=== PATIENT | male | born 1965 | race Caucasian/White ===

== ENCOUNTER 2019-01-15 14:12 | Inpatient (IN) ==
[2019-01-15] MEDS ORDERED: ONDANSETRON 4 MG/2 ML VIAL IV STA (14:36)
[2019-01-15] MEDS ORDERED: LACTATED RINGERS 1,000 ML IV ONE (14:36)
[2019-01-15 15:02] LABS: ABG Base Excess -22.1 MMOL/L (-2.5-2.5); ABG HCO3 3.6 MMOL/L (20-26); ABG Oxygen Saturation 98.7 % (95-100); ABG TCO2 3.9 MMOL/L (23-27)
[2019-01-15 15:12] LABS: ABG PCO2 10.4 MM HG (35-48)
[2019-01-15 15:37] LABS: Apearance,Urine Slightly Hazy (Clear); Bilirubin,Urine Negative (Negative); Blood, Urine Moderate mg/dL (Negative); Glucose,Urine (UA) >=500 mg/dL (Negative); Hyaline Casts,Urine 7 /LPF (0-3); Ketones,Urine 80 mg/dL (Negative); Mucus,Urine Occasional /LPF (Occasional); Nitrite,Urine Negative (Negative); Protein,Urine 100 MG/DL; RBC,Urine 2 /HPF (0-4); Squamous Epithelial Cell,Urine Occasional /HPF (0-10); Urine Color Yellow (Yellow); Urine Specific Gravity 1.022 (1.001-1.035); Urine Urobilinogen < 2.0 EU/DL (0.2-1.0); WBC,Urine <1 /HPF (0-6)
[2019-01-15 15:40] LABS: INR 1.1; PT Patient Result 11.5 SECS; Salicylate 6.4 MG/DL (2.8-20)
[2019-01-15 15:41] LABS: Barbiturates Screen,Urine Negative (Negative); Benzodiazepines Screen,Urine Negative (Negative); Cannabinoid Screen,Urine Negative (Negative); Opiate Screen,Urine Negative (Negative); Phencyclidine Screen,Urine Negative (Negative)
[2019-01-15 15:42] LABS: Basophils % 0.1 % (0.0-0.8); Hematocrit 52.6 VOL% (42.0-52.0); Hemoglobin 16.1 GM/DL (14.0-18.0); Immature Granulocytes % 5.3 %; Immature Granulocytes Absolute 1.69 #; Lymphocytes # 1.9 10*3/uL (1.4-4.0); Lymphocytes % 5.8 % (21.2-54.2); Mean Corpuscular HGB Conc 30.6 GM/DL (32-36); Mean Corpuscular Volume 96.2 FL (87-102); Mean Platelet Volume 13.1 FL (9.6-12.0); Monocytes % 7.7 % (1.7-12.7); NRBC # 0.02 10*3/uL; Neutrophils % 81.1 % (38.7-73.9); Platelet Count 258 T/CUMM (130-400); Red Blood Count 5.47 MC/CUMM (3.8-5.5); Red Cell Distribution Width 14.4 % (9.3-17.3); White Blood Count 32.2 T/CUMM (4-12)
[2019-01-15 15:45] LABS: Acetaminophen < 2.0 UG/ML (10-30)
[2019-01-15] MEDS ORDERED: PANTOPRAZOLE 40 MG VIAL IV STA (15:47)
[2019-01-15] MEDS ORDERED: cefTRIAXone 1,000 MG in SODIUM CHLORIDE 0.9% 100 ML IV STA (15:56)
[2019-01-15] MEDS ORDERED: VANCOMYCIN INJ 1,500 MG in SODIUM CHLORIDE 0.9% 500 ML IV STA (15:56)
[2019-01-15] MEDS ORDERED: cefTRIAXone 1,000 MG in SYRINGE 1 EACH IV STA (16:00)
[2019-01-15 16:08] LABS: Alanine Aminotransferase 17 U/L (16-61); Alkaline Phosphatase 195 U/L (45-117); Aspartate Amino Transferase 49 U/L (0-37); Blood Urea Nitrogen 86 MG/DL (7-18); Calcium 9.1 MG/DL (8.5-10.1); Osmolality,Calculated 355.1 MOS/KG (273-304); Total Protein 8.2 G/DL (6.4-8.3)
[2019-01-15 16:10] LABS: Glucose 940 MG/DL (74-106)
[2019-01-15] MEDS: INSULIN REGULAR DRIP 100 ML IV PRN (16:21)
[2019-01-15] MEDS ORDERED: SODIUM CHLORIDE 0.9% 2,200 ML IV ONE ×2 (16:43→17:27)
[2019-01-15] MEDS ORDERED: SODIUM PHOSPHATE INJ 18.1 MMOL in SODIUM CHLORIDE 0.9% 250 ML IV PRN (16:47)
[2019-01-15] MEDS ORDERED: SODIUM CHLORIDE 0.9% 1,000 ML IV ONE (16:47)
[2019-01-15] MEDS ORDERED: MAGNESIUM SULF RIDER 4 GM in PREMIX 1 EACH IV PRN (16:47)
[2019-01-15] MEDS ORDERED: INSULIN REGULAR 100 UNIT/ML IV ONE (16:47)
[2019-01-15] MEDS ORDERED: SODIUM BICARB INJ 100 MEQ in STERILE WATER INJ 400 ML IV PRN (16:47)
[2019-01-15] MEDS ORDERED: MAGNESIUM SULF RIDER 2 GM in PREMIX 1 EACH IV PRN (16:47)
[2019-01-15] MEDS ORDERED: DEXTROSE 50% 25 GM/50 ML VIAL IV PRN ×2 (16:47)
[2019-01-15] MEDS ORDERED: INSULIN REGULAR DRIP 100 ML IV SCH (17:00)
[2019-01-15] MEDS ORDERED: PIPERACILLIN/TAZOBACTAM 2.25 MG in SODIUM CHLORIDE 0.9% 100 ML IV SCH (17:00)
[2019-01-15] MEDS ORDERED: VANCOMYCIN INJ 1,000 MG in SODIUM CHLORIDE 0.9% 250 ML IV SCH (17:00)
[2019-01-15] MEDS ORDERED: SODIUM CHLORIDE 0.9% 1,000 ML IV SCH ×2 (17:00→21:47)
[2019-01-15] MEDS ORDERED: POTASSIUM CHLORIDE INJ 10 MEQ in LACTATED RINGERS 1,000 ML IV SCH (17:00)
[2019-01-15 17:12] LABS: Band Neutrophils 16 % (0-10); Lymphocytes 7 % (20-55); Platelet Estimate Normal; Segmented Neutrophils 72 % (50-85)
[2019-01-15 17:13] LABS: Anisocytosis 1+
[2019-01-15 17:14] LABS: Poikilocytosis 1+
[2019-01-15 17:15] LABS: Burr Cells 1+; Microcytosis Slight
[2019-01-15 17:16] LABS: Total Cells Counted 100
[2019-01-15] MEDS: SODIUM CHLORIDE 0.9% 1,000 ML IV SCH ×2 (18:01→21:28)
[2019-01-15 18:16] LABS: Basophils % 0.1 % (0.0-0.8); Hemoglobin 14.1 GM/DL (14.0-18.0); Immature Granulocytes % 4.2 %; Lymphocytes # 1.6 10*3/uL (1.4-4.0); Lymphocytes % 5.7 % (21.2-54.2); Mean Corpuscular HGB Conc 31.3 GM/DL (32-36); Mean Corpuscular Volume 93.8 FL (87-102); Mean Platelet Volume 12.4 FL (9.6-12.0); Monocytes % 4.9 % (1.7-12.7); NRBC # 0.02 10*3/uL; Neutrophils % 85.1 % (38.7-73.9); Platelet Count 220 T/CUMM (130-400); Red Cell Distribution Width 14.2 % (9.3-17.3); White Blood Count 28.3 T/CUMM (4-12)
[2019-01-15 18:25] LABS: Calcium 8.2 MG/DL (8.5-10.1); Osmolality,Calculated 352.4 MOS/KG (273-304)
[2019-01-15 18:27] LABS: CKMB % 10.8 %
[2019-01-15 18:31] LABS: Troponin I 16.3 NG/ML (0.00-0.045)
[2019-01-15] MEDS: PIPERACILLIN/TAZOBACTAM 3,375 MG in SODIUM CHLORIDE 0.9% 100 ML IV SCH (18:39)
[2019-01-15 19:09] LABS: ABG Base Excess -16.6 MMOL/L (-2.5-2.5); ABG HCO3 12.2 MMOL/L (20-26); ABG Oxygen Saturation 99.4 % (95-100); ABG PH 7.255 (7.35-7.45); ABG TCO2 8.3 MMOL/L (23-27); Allen Test Positive
[2019-01-15 19:16] LABS: ABG PCO2 20.9 MM HG (35-48)
[2019-01-15 21:18] LABS: Band Neutrophils 18 % (0-10); Lymphocytes 5 % (20-55); Platelet Estimate Normal; Segmented Neutrophils 75 % (50-85)
[2019-01-15 21:19] LABS: Atypical Lymphocytes Few; Burr Cells 1+
[2019-01-15 21:21] LABS: Anisocytosis Slight; Poikilocytosis 1+; Spherocytes 1+
[2019-01-15 21:22] LABS: Total Cells Counted 100
[2019-01-15] MEDS: ASCORBIC ACID 500 MG TABLET PO SCH (21:29)
[2019-01-15 22:00] LABS: Calcium 8.6 MG/DL (8.5-10.1); Osmolality,Calculated 342.3 MOS/KG (273-304)
[2019-01-15] MEDS: POTASSIUM CHLORIDE RIDER 20 MEQ in PREMIX 1 EACH IV PRN (22:42)
[2019-01-15 23:34] LABS: Hematocrit 38.3 VOL% (42.0-52.0); Hemoglobin 12.5 GM/DL (14.0-18.0)
[2019-01-15 23:53] LABS: CKMB % 11.6 %
[2019-01-16] MEDS: PANTOPRAZOLE INJ 200 MG in SODIUM CHLORIDE 0.9% 250 ML IV SCH ×2 (00:50→20:04)
[2019-01-16] MEDS: POTASSIUM CHLORIDE RIDER 20 MEQ in PREMIX 1 EACH IV PRN ×3 (00:51→22:43)
[2019-01-16] MEDS: PIPERACILLIN/TAZOBACTAM 3,375 MG in SODIUM CHLORIDE 0.9% 100 ML IV SCH ×3 (01:42→17:03)
[2019-01-16] MEDS: INSULIN REGULAR DRIP 100 ML IV PRN ×2 (02:37→11:30)
[2019-01-16] MEDS: POTASSIUM CHLORIDE RIDER 10 MEQ in PREMIX 1 EACH IV PRN ×2 (02:39→10:04)
[2019-01-16] MEDS: ONDANSETRON 4 MG/2 ML VIAL IV PRN (02:45)
[2019-01-16 02:48] LABS: Basophils # 0.2 10*3/uL (0.0-0.2); Basophils % 0.7 % (0.0-0.8); Hemoglobin 12.3 GM/DL (14.0-18.0); Immature Granulocytes % 4.5 %; Lymphocytes # 0.9 10*3/uL (1.4-4.0); Lymphocytes % 3.2 % (21.2-54.2); Mean Corpuscular HGB Conc 32.4 GM/DL (32-36); Mean Corpuscular Volume 89.4 FL (87-102); Monocytes % 6.5 % (1.7-12.7); Neutrophils % 85.1 % (38.7-73.9); Platelet Count 189 T/CUMM (130-400); Red Blood Count 4.25 MC/CUMM (3.8-5.5); Red Cell Distribution Width 14.1 % (9.3-17.3)
[2019-01-16 03:29] LABS: Calcium 7.9 MG/DL (8.5-10.1); Osmolality,Calculated 337.7 MOS/KG (273-304)
[2019-01-16 03:33] LABS: CKMB % 12.3 %
[2019-01-16 03:35] LABS: Troponin I 27.9 NG/ML (0.00-0.045)
[2019-01-16] MEDS: DEXT 5% NACL 0.45% KCL 20 MEQ 20 MEQ/1,000 ML BAG IV SCH ×5 (03:43→20:04)
[2019-01-16 04:08] LABS: Band Neutrophils 6 % (0-10); Lymphocytes 5 % (20-55); Segmented Neutrophils 87 % (50-85); Total Cells Counted 100
[2019-01-16 04:09] LABS: Anisocytosis 1+; Platelet Estimate Adequate
[2019-01-16 07:03] LABS: Calcium 7.9 MG/DL (8.5-10.1); Osmolality,Calculated 332.7 MOS/KG (273-304)
[2019-01-16 07:47] LABS: Hematocrit 41.1 VOL% (42.0-52.0); Hemoglobin 13.8 GM/DL (14.0-18.0)
[2019-01-16 08:06] LABS: Thyroid Stimulating Hormone 0.261 uIU/ml (0.358-3.74)
[2019-01-16 08:08] LABS: Risk Ratio 7.91; VLDL CHOLESTEROL 27.6 MG/DL
[2019-01-16 08:39] LABS: Osmolality,Calculated 332.5 MOS/KG (273-304)
[2019-01-16] MEDS ORDERED: METOPROLOL TARTRATE 50 MG TABLET PO SCH (09:00)
[2019-01-16 09:26] LABS: ABG Base Excess -7.9 MMOL/L (-2.5-2.5); ABG HCO3 18.1 MMOL/L (20-26); ABG Oxygen Saturation 98.6 % (95-100); ABG TCO2 14.8 MMOL/L (23-27); Allen Test Positive
[2019-01-16] MEDS ORDERED: SODIUM CHLORIDE 0.45% 1,000 ML IV SCH (09:47)
[2019-01-16 10:41] LABS: Hematocrit 37.4 VOL% (42.0-52.0); Hemoglobin 12.2 GM/DL (14.0-18.0)
[2019-01-16 10:50] LABS: Troponin I 19.3 NG/ML (0.00-0.045)
[2019-01-16] MEDS: VANCOMYCIN INJ 1,000 MG in SODIUM CHLORIDE 0.9% 250 ML IV SCH ×2 (12:57→22:42)
[2019-01-16] MEDS: METOPROLOL TARTRATE 5 MG/5 ML VIAL IV SCH ×2 (13:03→18:08)
[2019-01-16] MEDS: ASCORBIC ACID 500 MG TABLET PO SCH ×2 (13:12→21:57)
[2019-01-16 13:17] LABS: Calcium 7.6 MG/DL (8.5-10.1); Osmolality,Calculated 325.9 MOS/KG (273-304)
[2019-01-16] MEDS: DEXTROSE 50% 25 GM/50 ML VIAL IV PRN (14:50)
[2019-01-16] MEDS ORDERED: DEXTROSE 50% 25 GM/50 ML SYRINGE IV ONE (14:52)
[2019-01-16] MEDS: ASPIRIN EC 325 MG TABLET PO SCH (16:42)
[2019-01-16 17:09] LABS: Hematocrit 33.3 VOL% (42.0-52.0); Hemoglobin 11.2 GM/DL (14.0-18.0)
[2019-01-16 18:11] LABS: Calcium 7.3 MG/DL (8.5-10.1); Osmolality,Calculated 326.9 MOS/KG (273-304)
[2019-01-16] MEDS: SODIUM CHLOR 0.45% KCL 20 MEQ 20 MEQ/1,000 ML BAG IV SCH (20:04)
[2019-01-16 20:53] LABS: Calcium 8.3 MG/DL (8.5-10.1); Osmolality,Calculated 323.6 MOS/KG (273-304)
[2019-01-16 21:43] LABS: Apearance,Urine CLOUDY (Clear); Bilirubin,Urine Negative (Negative); Blood, Urine Moderate mg/dL (Negative); Glucose,Urine (UA) 50 mg/dL (Negative); Granular Casts,Urine 15 /LPF (0-1); Ketones,Urine Negative (Negative); Mucus,Urine Occasional /LPF (Occasional); Nitrite,Urine Negative (Negative); Protein,Urine Negative; RBC,Urine 10 /HPF (0-4); Uric Acid Crystals,Urine Moderate /HPF (<1); Urine Color Yellow (Yellow); Urine Specific Gravity 1.015 (1.001-1.035); Urine Urobilinogen < 2.0 EU/DL (0.2-1.0); WBC,Urine 2 /HPF (0-6)
[2019-01-17] MEDS: INSULIN REGULAR DRIP 100 ML IV PRN ×2 (00:34→23:01)
[2019-01-17] MEDS: METOPROLOL TARTRATE 5 MG/5 ML VIAL IV SCH ×5 (00:35→23:39)
[2019-01-17 01:14] LABS: Hematocrit 34.7 VOL% (42.0-52.0); Hemoglobin 11.4 GM/DL (14.0-18.0)
[2019-01-17 01:25] LABS: Calcium 7.7 MG/DL (8.5-10.1); Osmolality,Calculated 322.9 MOS/KG (273-304)
[2019-01-17] MEDS: PANTOPRAZOLE INJ 200 MG in SODIUM CHLORIDE 0.9% 250 ML IV SCH ×2 (01:50→22:30)
[2019-01-17] MEDS: PIPERACILLIN/TAZOBACTAM 3,375 MG in SODIUM CHLORIDE 0.9% 100 ML IV SCH (01:54)
[2019-01-17] MEDS: DEXT 5% NACL 0.45% KCL 20 MEQ 20 MEQ/1,000 ML BAG IV SCH ×5 (02:30→20:28)
[2019-01-17 05:04] LABS: Calcium 8.1 MG/DL (8.5-10.1); Osmolality,Calculated 325.6 MOS/KG (273-304)
[2019-01-17] MEDS: POTASSIUM CHLORIDE RIDER 20 MEQ in PREMIX 1 EACH IV PRN (05:24)
[2019-01-17] MEDS ORDERED: LACTATED RINGERS 1,000 ML IV SCH (08:00)
[2019-01-17] MEDS ORDERED: DEXTROSE 5% 1,000 ML IV SCH (08:00)
[2019-01-17] MEDS ORDERED: niCARdipine INJ 25 MG in SODIUM CHLORIDE 0.9% 240 ML IV PRN (08:01)
[2019-01-17] MEDS ORDERED: cloNIDine 0.3 MG/24 HR PATCH TRANSDERM SCH (09:00)
[2019-01-17] MEDS: MEROPENEM 1,000 MG in SODIUM CHLORIDE 0.9% 100 ML IV SCH ×2 (12:36→18:06)
[2019-01-17] MEDS: RIFAMPIN INJ 600 MG in SODIUM CHLORIDE 0.9% 100 ML IV SCH (12:55)
[2019-01-17] MEDS: ONDANSETRON 4 MG/2 ML VIAL IV PRN (13:40)
[2019-01-17] MEDS: ASPIRIN EC 325 MG TABLET PO SCH (13:42)
[2019-01-17] MEDS: ASCORBIC ACID 500 MG TABLET PO SCH ×2 (13:42→20:28)
[2019-01-17] MEDS: VANCOMYCIN INJ 1,000 MG in SODIUM CHLORIDE 0.9% 250 ML IV SCH (13:44)
[2019-01-17] MEDS ORDERED: DEXTROSE 50% 25 GM/50 ML VIAL IV ONE (14:37)
[2019-01-17] MEDS: SODIUM CHLOR 0.45% KCL 20 MEQ 20 MEQ/1,000 ML BAG IV SCH (20:05)
[2019-01-18] MEDS: MEROPENEM 1,000 MG in SODIUM CHLORIDE 0.9% 100 ML IV SCH ×4 (00:42→23:22)
[2019-01-18] MEDS: VANCOMYCIN INJ 1,000 MG in SODIUM CHLORIDE 0.9% 250 ML IV SCH ×2 (01:22→12:16)
[2019-01-18] MEDS: DEXT 5% NACL 0.45% KCL 20 MEQ 20 MEQ/1,000 ML BAG IV SCH ×5 (03:44→18:41)
[2019-01-18 05:20] LABS: Basophils % 0.2 % (0.0-0.8); Eosinophils % 0.1 % (0.00-10.9); Hemoglobin 9.5 GM/DL (14.0-18.0); Immature Granulocytes % 1.6 %; Immature Granulocytes Absolute 0.21 #; Lymphocytes # 1.1 10*3/uL (1.4-4.0); Lymphocytes % 8.5 % (21.2-54.2); Mean Corpuscular HGB Conc 32.8 GM/DL (32-36); Mean Corpuscular Volume 90.1 FL (87-102); Mean Platelet Volume 12.3 FL (9.6-12.0); Monocytes % 4.7 % (1.7-12.7); Neutrophils % 84.9 % (38.7-73.9); Platelet Count 98 T/CUMM (130-400); Red Blood Count 3.22 MC/CUMM (3.8-5.5); Red Cell Distribution Width 14.6 % (9.3-17.3)
[2019-01-18] MEDS: METOPROLOL TARTRATE 5 MG/5 ML VIAL IV SCH ×4 (05:40→23:22)
[2019-01-18 05:57] LABS: Hypochromasia 1+; Lymphocytes 7 % (20-55); Platelet Estimate Decreased; Segmented Neutrophils 86 % (50-85); Total Cells Counted 100
[2019-01-18 05:58] LABS: Calcium 7.1 MG/DL (8.5-10.1); Osmolality,Calculated 309.7 MOS/KG (273-304)
[2019-01-18 06:25] LABS: Troponin I 3.41 NG/ML (0.00-0.045)
[2019-01-18] MEDS ORDERED: LACTATED RINGERS 1,000 ML IV SCH (08:00)
[2019-01-18] MEDS ORDERED: GLUCAGON 1 MG VIAL IM PRN (08:08)
[2019-01-18] MEDS ORDERED: DEXTROSE 50% 25 GM/50 ML VIAL IV PRN (08:08)
[2019-01-18] MEDS: COLCHICINE 0.6 MG CAPSULE PO SCH ×2 (08:42→20:30)
[2019-01-18] MEDS: ASPIRIN EC 325 MG TABLET PO SCH (08:42)
[2019-01-18] MEDS: ASCORBIC ACID 500 MG TABLET PO SCH ×2 (08:43→20:30)
[2019-01-18] MEDS: INSULIN GLARGINE 100 UNIT/ML SUBCUT SCH (08:44)
[2019-01-18] MEDS: RIFAMPIN INJ 600 MG in SODIUM CHLORIDE 0.9% 100 ML IV SCH (08:47)
[2019-01-18] MEDS: PANTOPRAZOLE INJ 200 MG in SODIUM CHLORIDE 0.9% 250 ML IV SCH (08:49)
[2019-01-18] MEDS ORDERED: PROPOFOL 200 MG/20 ML VIAL IV ONE (11:11)
[2019-01-18] MEDS ORDERED: ETOMIDATE 40 MG/20 ML VIAL IV ONE (11:11)
[2019-01-18] MEDS: INSULIN LISPRO 100 UNIT/ML SUBCUT SCH ×3 (12:17→20:37)
[2019-01-19] MEDS: VANCOMYCIN INJ 1,000 MG in SODIUM CHLORIDE 0.9% 250 ML IV SCH (00:24)
[2019-01-19] MEDS: INSULIN LISPRO 100 UNIT/ML SUBCUT SCH ×6 (01:02→21:45)
[2019-01-19 05:30] LABS: Basophils % 0.2 % (0.0-0.8); Eosinophils % 0.2 % (0.00-10.9); Hematocrit 28.3 VOL% (42.0-52.0); Hemoglobin 9.3 GM/DL (14.0-18.0); Immature Granulocytes Absolute 0.12 #; Lymphocytes # 1.1 10*3/uL (1.4-4.0); Lymphocytes % 8.9 % (21.2-54.2); Mean Corpuscular HGB Conc 32.9 GM/DL (32-36); Mean Corpuscular Volume 88.7 FL (87-102); Mean Platelet Volume 12.2 FL (9.6-12.0); Monocytes % 6.6 % (1.7-12.7); Neutrophils % 83.1 % (38.7-73.9); Platelet Count 102 T/CUMM (130-400); Red Blood Count 3.19 MC/CUMM (3.8-5.5); Red Cell Distribution Width 14.2 % (9.3-17.3); White Blood Count 12.1 T/CUMM (4-12)
[2019-01-19 06:00] LABS: Albumin 1.2 G/DL (3.4-5.0); Bilirubin,Direct 1.81 MG/DL (0.0-0.20); Bilirubin,Indirect 0.9 MG/DL (0.0-1.0); Bilirubin,Total 2.7 MG/DL (0.2-1.0); Total Protein 4.9 G/DL (6.4-8.3)
[2019-01-19] MEDS: METOPROLOL TARTRATE 5 MG/5 ML VIAL IV SCH (06:05)
[2019-01-19 06:07] LABS: Band Neutrophils 5 % (0-10); Lymphocytes 8 % (20-55); Nucleated Red Blood Cells 0 (0-5); Platelet Estimate Decreased; Segmented Neutrophils 83 % (50-85); Total Cells Counted 100
[2019-01-19 06:28] LABS: Calcium 6.9 MG/DL (8.5-10.1); Osmolality,Calculated 297.6 MOS/KG (273-304)
[2019-01-19] MEDS: POTASSIUM CHLORIDE RIDER 10 MEQ in PREMIX 1 EACH IV PRN (06:46)
[2019-01-19] MEDS ORDERED: NIFEdipine 10 MG CAPSULE PO PRN (07:50)
[2019-01-19] MEDS ORDERED: INSULIN LISPRO 100 UNIT/ML ONE (08:46)
[2019-01-19] MEDS: POTASSIUM CHLORIDE 20 MEQ TABLET PO SCH ×3 (08:51→17:10)
[2019-01-19] MEDS: COLCHICINE 0.6 MG CAPSULE PO SCH (08:51)
[2019-01-19] MEDS: ASCORBIC ACID 500 MG TABLET PO SCH ×2 (08:51→21:34)
[2019-01-19] MEDS: MEROPENEM 1,000 MG in SODIUM CHLORIDE 0.9% 100 ML IV SCH ×2 (08:58→17:09)
[2019-01-19] MEDS ORDERED: PANTOPRAZOLE 40 MG TABLET PO SCH (09:00)
[2019-01-19] MEDS ORDERED: PANTOPRAZOLE 40 MG VIAL IV SCH (09:00)
[2019-01-19] MEDS: DEXT 5% NACL 0.45% KCL 20 MEQ 20 MEQ/1,000 ML BAG IV SCH (09:00)
[2019-01-19] MEDS: INSULIN GLARGINE 100 UNIT/ML SUBCUT SCH (09:01)
[2019-01-19] MEDS: RIFAMPIN INJ 600 MG in SODIUM CHLORIDE 0.9% 100 ML IV SCH (10:08)
[2019-01-19] MEDS: LANSOPRAZOLE ODT 30 MG TABLET PER TUBE SCH (10:09)
[2019-01-19] MEDS: ASPIRIN CHEW 81 MG TABLET PO SCH (10:09)
[2019-01-19] MEDS: VANCOMYCIN INJ 1,500 MG in SODIUM CHLORIDE 0.9% 500 ML IV SCH (10:41)
[2019-01-19] MEDS: ASPIRIN EC 325 MG TABLET PO SCH (10:52)
[2019-01-19] MEDS ORDERED: METOPROLOL SUCCINATE XL 25 MG TABLET PO SCH (14:00)
[2019-01-19] MEDS: METOPROLOL TARTRATE 25 MG TABLET PO SCH (14:39)
[2019-01-19] MEDS ORDERED: CALCIUM GLUCONATE 2,000 MG in SODIUM CHLORIDE 0.9% 100 ML IV ONE (15:02)
[2019-01-19] MEDS: RIFAMPIN 300 MG CAPSULE PO SCH (21:34)
[2019-01-20] MEDS: MEROPENEM 1,000 MG in SODIUM CHLORIDE 0.9% 100 ML IV SCH ×4 (00:17→23:20)
[2019-01-20] MEDS: VANCOMYCIN INJ 1,500 MG in SODIUM CHLORIDE 0.9% 500 ML IV SCH ×2 (01:42→15:43)
[2019-01-20 05:51] LABS: Calcium 7.4 MG/DL (8.5-10.1); Osmolality,Calculated 288.8 MOS/KG (273-304)
[2019-01-20] MEDS: INSULIN LISPRO 100 UNIT/ML SUBCUT SCH ×5 (07:30→21:03)
[2019-01-20] MEDS: RIFAMPIN 300 MG CAPSULE PO SCH ×2 (10:39→20:54)
[2019-01-20] MEDS: INSULIN GLARGINE 100 UNIT/ML SUBCUT SCH (10:39)
[2019-01-20] MEDS: ASPIRIN CHEW 81 MG TABLET PO SCH (10:40)
[2019-01-20] MEDS: ASCORBIC ACID 500 MG TABLET PO SCH ×2 (10:40→20:54)
[2019-01-20] MEDS: METOPROLOL TARTRATE 25 MG TABLET PO SCH (10:40)
[2019-01-20] MEDS: COLCHICINE 0.6 MG CAPSULE PO SCH (10:40)
[2019-01-20] MEDS: LANSOPRAZOLE ODT 30 MG TABLET PER TUBE SCH (10:41)
[2019-01-20] MEDS ORDERED: TAMSULOSIN 0.4 MG CAPSULE PO SCH (21:00)
[2019-01-21] MEDS: VANCOMYCIN INJ 1,500 MG in SODIUM CHLORIDE 0.9% 500 ML IV SCH ×2 (02:34→17:13)
[2019-01-21 06:03] LABS: Calcium 7.3 MG/DL (8.5-10.1); Osmolality,Calculated 286.1 MOS/KG (273-304)
[2019-01-21] MEDS ORDERED: POTASSIUM CHLORIDE 20 MEQ TABLET PO ONE ×2 (09:00→12:35)
[2019-01-21] MEDS: MEROPENEM 1,000 MG in SODIUM CHLORIDE 0.9% 100 ML IV SCH (09:47)
[2019-01-21] MEDS: METOPROLOL TARTRATE 25 MG TABLET PO SCH (09:48)
[2019-01-21] MEDS: ASCORBIC ACID 500 MG TABLET PO SCH ×2 (09:48→21:41)
[2019-01-21] MEDS: COLCHICINE 0.6 MG CAPSULE PO SCH (09:48)
[2019-01-21] MEDS: ASPIRIN CHEW 81 MG TABLET PO SCH (09:49)
[2019-01-21] MEDS: RIFAMPIN 300 MG CAPSULE PO SCH ×2 (09:49→21:41)
[2019-01-21] MEDS: LANSOPRAZOLE ODT 30 MG TABLET PER TUBE SCH (09:49)
[2019-01-21] MEDS: INSULIN LISPRO 100 UNIT/ML SUBCUT SCH ×4 (10:40→21:41)
[2019-01-21] MEDS: INSULIN GLARGINE 100 UNIT/ML SUBCUT SCH (10:41)
[2019-01-22] MEDS: VANCOMYCIN INJ 1,500 MG in SODIUM CHLORIDE 0.9% 500 ML IV SCH ×2 (03:21→15:39)
[2019-01-22 06:26] LABS: Calcium 7.5 MG/DL (8.5-10.1); Osmolality,Calculated 279.1 MOS/KG (273-304)
[2019-01-22] MEDS: DEXTROSE 50% 25 GM/50 ML VIAL IV PRN (06:50)
[2019-01-22] MEDS: INSULIN LISPRO 100 UNIT/ML SUBCUT SCH ×4 (07:32→21:09)
[2019-01-22] MEDS: RIFAMPIN 300 MG CAPSULE PO SCH (08:20)
[2019-01-22] MEDS: COLCHICINE 0.6 MG CAPSULE PO SCH (08:20)
[2019-01-22] MEDS: ASCORBIC ACID 500 MG TABLET PO SCH ×2 (08:20→21:08)
[2019-01-22] MEDS: METOPROLOL TARTRATE 25 MG TABLET PO SCH (08:20)
[2019-01-22] MEDS: ASPIRIN CHEW 81 MG TABLET PO SCH (08:20)
[2019-01-22] MEDS: LANSOPRAZOLE ODT 30 MG TABLET PER TUBE SCH (08:20)
[2019-01-22] MEDS: POTASSIUM CHLORIDE RIDER 10 MEQ in PREMIX 1 EACH IV PRN ×3 (08:47→13:43)
[2019-01-22] MEDS: INSULIN GLARGINE 100 UNIT/ML SUBCUT SCH (09:47)
[2019-01-23] MEDS: VANCOMYCIN INJ 1,500 MG in SODIUM CHLORIDE 0.9% 500 ML IV SCH ×2 (02:50→15:14)
[2019-01-23] MEDS: INSULIN LISPRO 100 UNIT/ML SUBCUT SCH ×4 (07:26→21:39)
[2019-01-23] MEDS: ASCORBIC ACID 500 MG TABLET PO SCH ×2 (08:21→21:39)
[2019-01-23] MEDS: RIFAMPIN 300 MG CAPSULE PO SCH (08:21)
[2019-01-23] MEDS: ASPIRIN CHEW 81 MG TABLET PO SCH (08:22)
[2019-01-23] MEDS: METOPROLOL TARTRATE 25 MG TABLET PO SCH (08:22)
[2019-01-23] MEDS: COLCHICINE 0.6 MG CAPSULE PO SCH (08:22)
[2019-01-23] MEDS: INSULIN GLARGINE 100 UNIT/ML SUBCUT SCH (08:22)
[2019-01-23] MEDS: LANSOPRAZOLE ODT 30 MG TABLET PER TUBE SCH (08:22)
[2019-01-23] MEDS ORDERED: LIDOCAINE 1% 20 ML VIAL MISC INJ ONE (17:45)
[2019-01-23 19:42] LABS: Cholesterol Crystals None Seen /LPF
[2019-01-23 20:37] LABS: Lymphocytes,Synovial Fluid 3 %; Neutrophils,Synovial Fluid 91 %
[2019-01-24] MEDS: LACTATED RINGERS 1,000 ML IV SCH ×2 (02:29→13:20)
[2019-01-24] MEDS: VANCOMYCIN INJ 1,500 MG in SODIUM CHLORIDE 0.9% 500 ML IV SCH ×2 (02:29→18:00)
[2019-01-24 05:08] LABS: Basophils % 0.4 % (0.0-0.8); Eosinophils # 0.2 10*3/uL (0.0-0.87); Eosinophils % 2.1 % (0.00-10.9); Hematocrit 26.2 VOL% (42.0-52.0); Hemoglobin 8.3 GM/DL (14.0-18.0); Immature Granulocytes % 0.8 %; Immature Granulocytes Absolute 0.09 #; Lymphocytes # 1.3 10*3/uL (1.4-4.0); Lymphocytes % 11.4 % (21.2-54.2); Mean Corpuscular HGB Conc 31.7 GM/DL (32-36); Mean Corpuscular Volume 91.6 FL (87-102); Mean Platelet Volume 11.1 FL (9.6-12.0); Monocytes % 9.4 % (1.7-12.7); Neutrophils % 75.9 % (38.7-73.9); Platelet Count 349 T/CUMM (130-400); Red Blood Count 2.86 MC/CUMM (3.8-5.5); Red Cell Distribution Width 12.6 % (9.3-17.3); White Blood Count 11.4 T/CUMM (4-12)
[2019-01-24 05:33] LABS: Calcium 7.4 MG/DL (8.5-10.1); Osmolality,Calculated 276.4 MOS/KG (273-304)
[2019-01-24] MEDS: INSULIN LISPRO 100 UNIT/ML SUBCUT SCH ×4 (07:30→20:46)
[2019-01-24] MEDS: INSULIN NPH 100 UNIT/ML SUBCUT SCH ×2 (07:30→16:30)
[2019-01-24 07:54] LABS: Sedimentation Rate-Westergren 125 MM/HR (0-20)
[2019-01-24] MEDS: ASCORBIC ACID 500 MG TABLET PO SCH ×2 (09:00→20:46)
[2019-01-24] MEDS: METOPROLOL TARTRATE 25 MG TABLET PO SCH ×2 (09:00→20:45)
[2019-01-24] MEDS ORDERED: BUPIVACAINE 0.5% 50 ML VIAL ONE (13:41)
[2019-01-24] MEDS ORDERED: BACITRACIN OINT 0.9 GM PACK TOP ONE (14:10)
[2019-01-24] MEDS ORDERED: LACTATED RINGERS 1,000 ML IV SCH ×2 (14:30→17:30)
[2019-01-24] MEDS ORDERED: diphenhydrAMINE CAP 25 MG CAPSULE PO PRN (15:51)
[2019-01-24] MEDS ORDERED: KETOROLAC 30 MG/1 ML VIAL IV PRN (15:51)
[2019-01-24] MEDS ORDERED: MORPHINE 4 MG/1 ML VIAL IV PRN (15:51)
[2019-01-24] MEDS ORDERED: MIDAZOLAM 2 MG/2 ML VIAL ONE (16:48)
[2019-01-24] MEDS ORDERED: SEVOFLURANE 1 UNIT/15 MINUTE INH ONE (16:48)
[2019-01-24] MEDS ORDERED: PROPOFOL 200 MG/20 ML VIAL IV ONE (16:48)
[2019-01-24] MEDS ORDERED: NEOSTIGMINE 10 MG/10 ML VIAL ONE (16:49)
[2019-01-24] MEDS ORDERED: PHENYLEPHRINE 1 MG/10 ML SYRINGE IV ONE (16:49)
[2019-01-24] MEDS ORDERED: ONDANSETRON 4 MG/2 ML VIAL ONE ×2 (16:49→17:14)
[2019-01-24] MEDS ORDERED: GLYCOPYRROLATE 0.4 MG/2 ML VIAL ONE (16:49)
[2019-01-24] MEDS ORDERED: ROCURONIUM 100 MG/10 ML VIAL IV ONE (16:49)
[2019-01-24] MEDS ORDERED: fentaNYL 100 MCG/2 ML VIAL ONE (16:49)
[2019-01-24] MEDS ORDERED: ONDANSETRON 4 MG/2 ML VIAL IV PRN (17:13)
[2019-01-24] MEDS ORDERED: HYDROmorphone 2 MG/1 ML VIAL ONE (17:14)
[2019-01-24] MEDS: HYDROmorphone 2 MG/1 ML VIAL IV PRN ×2 (17:15→17:23)
[2019-01-24] MEDS: ASPIRIN CHEW 81 MG TABLET PO SCH (17:43)
[2019-01-24] MEDS: LANSOPRAZOLE ODT 30 MG TABLET PER TUBE SCH (17:43)
[2019-01-24] MEDS: RIFAMPIN 300 MG CAPSULE PO SCH (17:44)
[2019-01-24] MEDS: COLCHICINE 0.6 MG CAPSULE PO SCH (17:45)
[2019-01-25] MEDS: VANCOMYCIN INJ 1,500 MG in SODIUM CHLORIDE 0.9% 500 ML IV SCH ×2 (03:12→16:47)
[2019-01-25] MEDS: ASCORBIC ACID 500 MG TABLET PO SCH ×2 (10:04→21:28)
[2019-01-25] MEDS: LANSOPRAZOLE ODT 30 MG TABLET PER TUBE SCH (10:04)
[2019-01-25] MEDS: METOPROLOL TARTRATE 25 MG TABLET PO SCH ×2 (10:04→21:28)
[2019-01-25] MEDS: ASPIRIN CHEW 81 MG TABLET PO SCH (10:04)
[2019-01-25] MEDS: INSULIN LISPRO 100 UNIT/ML SUBCUT SCH ×4 (10:14→21:28)
[2019-01-25] MEDS: INSULIN NPH 100 UNIT/ML SUBCUT SCH ×2 (10:15→16:47)
[2019-01-25] MEDS: RIFAMPIN 300 MG CAPSULE PO SCH (11:58)
[2019-01-26] MEDS: POTASSIUM CHLORIDE INJ 20 MEQ in LACTATED RINGERS 1,000 ML IV SCH ×2 (00:28→10:30)
[2019-01-26] MEDS: VANCOMYCIN INJ 1,500 MG in SODIUM CHLORIDE 0.9% 500 ML IV SCH ×2 (03:33→14:39)
[2019-01-26] MEDS ORDERED: FAMOTIDINE 20 MG TABLET PO ONE (06:00)
[2019-01-26 06:22] LABS: Basophils # 0.1 10*3/uL (0.0-0.2); Basophils % 0.6 % (0.0-0.8); Eosinophils # 0.2 10*3/uL (0.0-0.87); Eosinophils % 2.6 % (0.00-10.9); Hematocrit 22.4 VOL% (42.0-52.0); Hemoglobin 7.2 GM/DL (14.0-18.0); Immature Granulocytes % 0.7 %; Immature Granulocytes Absolute 0.06 #; Lymphocytes # 1.2 10*3/uL (1.4-4.0); Lymphocytes % 13.9 % (21.2-54.2); Mean Corpuscular HGB Conc 32.1 GM/DL (32-36); Mean Corpuscular Volume 90.7 FL (87-102); Mean Platelet Volume 11.4 FL (9.6-12.0); Monocytes % 9.2 % (1.7-12.7); Platelet Count 342 T/CUMM (130-400); Red Blood Count 2.47 MC/CUMM (3.8-5.5); Red Cell Distribution Width 12.6 % (9.3-17.3); White Blood Count 8.8 T/CUMM (4-12)
[2019-01-26 06:33] LABS: Osmolality,Calculated 278.3 MOS/KG (273-304)
[2019-01-26] MEDS: INSULIN LISPRO 100 UNIT/ML SUBCUT SCH ×4 (08:29→21:24)
[2019-01-26] MEDS: INSULIN NPH 100 UNIT/ML SUBCUT SCH ×2 (08:30→17:05)
[2019-01-26] MEDS ORDERED: SODIUM CHLORIDE 0.9% 1,000 ML IV PRN (08:50)
[2019-01-26] MEDS: ASPIRIN CHEW 81 MG TABLET PO SCH (08:57)
[2019-01-26] MEDS: LANSOPRAZOLE ODT 30 MG TABLET PER TUBE SCH (08:57)
[2019-01-26] MEDS: ASCORBIC ACID 500 MG TABLET PO SCH ×2 (08:58→21:24)
[2019-01-26] MEDS: METOPROLOL TARTRATE 25 MG TABLET PO SCH ×2 (09:31→21:24)
[2019-01-26] MEDS: POTASSIUM CHLORIDE RIDER 10 MEQ in PREMIX 1 EACH IV PRN ×4 (09:31→18:45)
[2019-01-26] MEDS ORDERED: BUPIVACAINE 0.5% 50 ML VIAL ONE (10:27)
[2019-01-26] MEDS ORDERED: PROPOFOL 200 MG/20 ML VIAL IV ONE (11:50)
[2019-01-26] MEDS ORDERED: MIDAZOLAM 2 MG/2 ML VIAL ONE (11:51)
[2019-01-26] MEDS ORDERED: SEVOFLURANE 1 UNIT/15 MINUTE INH ONE (11:51)
[2019-01-26] MEDS ORDERED: SODIUM CHLORIDE 0.9% 1,000 ML IV ONE (11:51)
[2019-01-26] MEDS ORDERED: fentaNYL 100 MCG/2 ML VIAL ONE (11:51)
[2019-01-26] MEDS ORDERED: SUCCINYLCHOLINE 200 MG/10 ML VIAL ONE (11:51)
[2019-01-26] MEDS ORDERED: ONDANSETRON 4 MG/2 ML VIAL ONE (11:51)
[2019-01-26] MEDS ORDERED: PHENYLEPHRINE 1 MG/10 ML SYRINGE IV ONE (11:51)
[2019-01-26 15:48] LABS: Hematocrit 26.5 VOL% (42.0-52.0); Hemoglobin 8.6 GM/DL (14.0-18.0)
[2019-01-27] MEDS: VANCOMYCIN INJ 1,500 MG in SODIUM CHLORIDE 0.9% 500 ML IV SCH ×2 (02:34→14:55)
[2019-01-27] MEDS: INSULIN NPH 100 UNIT/ML SUBCUT SCH ×2 (08:52→16:50)
[2019-01-27] MEDS: INSULIN LISPRO 100 UNIT/ML SUBCUT SCH ×4 (08:52→20:17)
[2019-01-27] MEDS: POTASSIUM CHLORIDE RIDER 10 MEQ in PREMIX 1 EACH IV PRN (08:53)
[2019-01-27] MEDS: METOPROLOL TARTRATE 25 MG TABLET PO SCH ×2 (08:53→20:16)
[2019-01-27] MEDS: LANSOPRAZOLE ODT 30 MG TABLET PER TUBE SCH (08:53)
[2019-01-27] MEDS: ASCORBIC ACID 500 MG TABLET PO SCH ×2 (08:53→20:16)
[2019-01-27] MEDS: ASPIRIN CHEW 81 MG TABLET PO SCH (08:53)
[2019-01-27 09:25] LABS: Hemoglobin 9.2 GM/DL (14.0-18.0)
[2019-01-27] MEDS: MAGNESIUM HYDROXIDE SUSP 30 ML UDCUP PO PRN (14:54)
[2019-01-28] MEDS: VANCOMYCIN INJ 1,500 MG in SODIUM CHLORIDE 0.9% 500 ML IV SCH ×2 (03:31→16:07)
[2019-01-28] MEDS: INSULIN NPH 100 UNIT/ML SUBCUT SCH ×2 (08:24→16:41)
[2019-01-28] MEDS: METOPROLOL TARTRATE 25 MG TABLET PO SCH ×2 (08:25→20:42)
[2019-01-28] MEDS: INSULIN LISPRO 100 UNIT/ML SUBCUT SCH ×4 (08:25→20:53)
[2019-01-28] MEDS: ASPIRIN CHEW 81 MG TABLET PO SCH (08:25)
[2019-01-28] MEDS: ASCORBIC ACID 500 MG TABLET PO SCH ×2 (08:25→20:42)
[2019-01-28] MEDS: LANSOPRAZOLE ODT 30 MG TABLET PER TUBE SCH (08:25)
[2019-01-28] MEDS: MAGNESIUM HYDROXIDE SUSP 30 ML UDCUP PO PRN ×2 (08:57→14:12)
[2019-01-28] MEDS: LIDOCAINE 2% VISCOUS 100 ML BOTTLE SWISH/SPIT SCH ×3 (14:12→20:43)
[2019-01-28] MEDS: FLUCONAZOLE 200 MG TABLET PO SCH (14:12)
[2019-01-28] MEDS: VANCOMYCIN INJ 1,250 MG in SODIUM CHLORIDE 0.9% 250 ML IV SCH (20:43)
[2019-01-29] MEDS: INSULIN LISPRO 100 UNIT/ML SUBCUT SCH ×4 (07:38→21:41)
[2019-01-29] MEDS: INSULIN NPH 100 UNIT/ML SUBCUT SCH ×2 (07:38→16:19)
[2019-01-29] MEDS: LIDOCAINE 2% VISCOUS 100 ML BOTTLE SWISH/SPIT SCH ×4 (08:32→21:40)
[2019-01-29] MEDS: FLUCONAZOLE 200 MG TABLET PO SCH (08:32)
[2019-01-29] MEDS: VANCOMYCIN INJ 1,250 MG in SODIUM CHLORIDE 0.9% 250 ML IV SCH ×2 (08:33→21:50)
[2019-01-29] MEDS: ASCORBIC ACID 500 MG TABLET PO SCH ×2 (08:33→21:41)
[2019-01-29] MEDS: LANSOPRAZOLE ODT 30 MG TABLET PER TUBE SCH (08:33)
[2019-01-29] MEDS: METOPROLOL TARTRATE 25 MG TABLET PO SCH ×2 (08:33→21:41)
[2019-01-29] MEDS: ASPIRIN CHEW 81 MG TABLET PO SCH (08:33)
[2019-01-30 05:57] LABS: Calcium 7.7 MG/DL (8.5-10.1); Osmolality,Calculated 276.3 MOS/KG (273-304)
[2019-01-30] MEDS: METOPROLOL TARTRATE 25 MG TABLET PO SCH ×2 (08:47→21:24)
[2019-01-30] MEDS: ASCORBIC ACID 500 MG TABLET PO SCH ×2 (08:47→21:23)
[2019-01-30] MEDS: INSULIN NPH 100 UNIT/ML SUBCUT SCH (08:47)
[2019-01-30] MEDS: FLUCONAZOLE 200 MG TABLET PO SCH (08:47)
[2019-01-30] MEDS: INSULIN LISPRO 100 UNIT/ML SUBCUT SCH ×4 (08:47→21:56)
[2019-01-30] MEDS: ASPIRIN CHEW 81 MG TABLET PO SCH (08:47)
[2019-01-30] MEDS: LIDOCAINE 2% VISCOUS 100 ML BOTTLE SWISH/SPIT SCH ×4 (08:47→21:24)
[2019-01-30] MEDS: LANSOPRAZOLE ODT 30 MG TABLET PER TUBE SCH (08:48)
[2019-01-30] MEDS: VANCOMYCIN INJ 1,250 MG in SODIUM CHLORIDE 0.9% 250 ML IV SCH ×2 (09:00→21:22)
[2019-01-30] MEDS ORDERED: INSULIN NPH 100 UNIT/ML SUBCUT SCH (12:04)
[2019-01-31] MEDS: ASCORBIC ACID 500 MG TABLET PO SCH ×2 (09:30→22:13)
[2019-01-31] MEDS: VANCOMYCIN INJ 1,250 MG in SODIUM CHLORIDE 0.9% 250 ML IV SCH (09:30)
[2019-01-31] MEDS: ASPIRIN CHEW 81 MG TABLET PO SCH (09:30)
[2019-01-31] MEDS: METOPROLOL TARTRATE 25 MG TABLET PO SCH ×2 (09:31→22:13)
[2019-01-31] MEDS: INSULIN LISPRO 100 UNIT/ML SUBCUT SCH ×4 (09:31→22:10)
[2019-01-31] MEDS: LIDOCAINE 2% VISCOUS 100 ML BOTTLE SWISH/SPIT SCH ×3 (09:31→16:32)
[2019-01-31] MEDS: FLUCONAZOLE 200 MG TABLET PO SCH (09:31)
[2019-01-31] MEDS: LANSOPRAZOLE ODT 30 MG TABLET PER TUBE SCH (10:45)
[2019-01-31] MEDS: INSULIN NPH 100 UNIT/ML SUBCUT SCH ×2 (12:47→16:32)
[2019-02-01] MEDS: VANCOMYCIN INJ 1,250 MG in SODIUM CHLORIDE 0.9% 250 ML IV SCH ×3 (03:40→20:58)
[2019-02-01 05:20] LABS: Basophils # 0.1 10*3/uL (0.0-0.2); Basophils % 0.7 % (0.0-0.8); Eosinophils # 0.3 10*3/uL (0.0-0.87); Eosinophils % 4.7 % (0.00-10.9); Hematocrit 26.6 VOL% (42.0-52.0); Hemoglobin 8.3 GM/DL (14.0-18.0); Immature Granulocytes % 0.9 %; Immature Granulocytes Absolute 0.06 #; Lymphocytes # 1.7 10*3/uL (1.4-4.0); Mean Corpuscular HGB Conc 31.2 GM/DL (32-36); Mean Corpuscular Volume 86.4 FL (87-102); Monocytes % 12.7 % (1.7-12.7); Platelet Count 263 T/CUMM (130-400); Red Blood Count 3.08 MC/CUMM (3.8-5.5); Red Cell Distribution Width 14.3 % (9.3-17.3)
[2019-02-01 05:31] LABS: Calcium 7.6 MG/DL (8.5-10.1); Osmolality,Calculated 277.4 MOS/KG (273-304)
[2019-02-01] MEDS: LIDOCAINE 2% VISCOUS 100 ML BOTTLE SWISH/SPIT SCH ×5 (06:13→21:14)
[2019-02-01] MEDS: LANSOPRAZOLE ODT 30 MG TABLET PER TUBE SCH (09:34)
[2019-02-01] MEDS: INSULIN NPH 100 UNIT/ML SUBCUT SCH ×2 (09:34→17:24)
[2019-02-01] MEDS: ASCORBIC ACID 500 MG TABLET PO SCH ×2 (09:34→20:57)
[2019-02-01] MEDS: FLUCONAZOLE 200 MG TABLET PO SCH (09:34)
[2019-02-01] MEDS: METOPROLOL TARTRATE 25 MG TABLET PO SCH ×2 (09:34→20:57)
[2019-02-01] MEDS: ASPIRIN CHEW 81 MG TABLET PO SCH (09:34)
[2019-02-01] MEDS: INSULIN LISPRO 100 UNIT/ML SUBCUT SCH ×4 (09:35→21:13)
[2019-02-01] MEDS: ZINC OXIDE PASTE 113 GM TUBE TOP SCH ×2 (17:31→21:14)
[2019-02-02] MEDS: INSULIN NPH 100 UNIT/ML SUBCUT SCH ×2 (08:51→16:11)
[2019-02-02] MEDS: INSULIN LISPRO 100 UNIT/ML SUBCUT SCH ×4 (08:51→20:37)
[2019-02-02] MEDS: LANSOPRAZOLE ODT 30 MG TABLET PER TUBE SCH (08:52)
[2019-02-02] MEDS: LIDOCAINE 2% VISCOUS 100 ML BOTTLE SWISH/SPIT SCH (08:52)
[2019-02-02] MEDS: METOPROLOL TARTRATE 25 MG TABLET PO SCH ×2 (08:52→20:22)
[2019-02-02] MEDS: FLUCONAZOLE 200 MG TABLET PO SCH (08:52)
[2019-02-02] MEDS: ASCORBIC ACID 500 MG TABLET PO SCH ×2 (08:52→20:22)
[2019-02-02] MEDS: ASPIRIN CHEW 81 MG TABLET PO SCH (08:52)
[2019-02-02] MEDS: ZINC OXIDE PASTE 113 GM TUBE TOP SCH ×2 (08:53→20:23)
[2019-02-02] MEDS: VANCOMYCIN INJ 1,250 MG in SODIUM CHLORIDE 0.9% 250 ML IV SCH ×2 (08:54→20:26)
[2019-02-02] MEDS: COENZYME Q10 100 MG CAPSULE PO SCH ×2 (10:08→10:14)
[2019-02-02] MEDS: ATORVASTATIN 20 MG TABLET PO SCH (20:22)
[2019-02-03] MEDS: INSULIN LISPRO 100 UNIT/ML SUBCUT SCH ×4 (07:32→21:40)
[2019-02-03] MEDS: INSULIN NPH 100 UNIT/ML SUBCUT SCH ×2 (08:39→16:53)
[2019-02-03] MEDS: ASPIRIN CHEW 81 MG TABLET PO SCH (08:39)
[2019-02-03] MEDS: LANSOPRAZOLE ODT 30 MG TABLET PER TUBE SCH (08:39)
[2019-02-03] MEDS: METOPROLOL TARTRATE 25 MG TABLET PO SCH ×2 (08:39→20:28)
[2019-02-03] MEDS: ZINC OXIDE PASTE 113 GM TUBE TOP SCH ×2 (08:40→20:28)
[2019-02-03] MEDS: COENZYME Q10 100 MG CAPSULE PO SCH (08:40)
[2019-02-03] MEDS: VANCOMYCIN INJ 1,250 MG in SODIUM CHLORIDE 0.9% 250 ML IV SCH ×2 (08:40→20:25)
[2019-02-03] MEDS: ASCORBIC ACID 500 MG TABLET PO SCH ×2 (08:40→20:28)
[2019-02-03] MEDS: ATORVASTATIN 20 MG TABLET PO SCH (20:27)
[2019-02-04 05:57] LABS: Calcium 7.6 MG/DL (8.5-10.1); Osmolality,Calculated 277.4 MOS/KG (273-304)
[2019-02-04] MEDS: INSULIN LISPRO 100 UNIT/ML SUBCUT SCH ×3 (08:38→16:54)
[2019-02-04] MEDS: INSULIN NPH 100 UNIT/ML SUBCUT SCH ×2 (08:38→16:54)
[2019-02-04] MEDS: ASPIRIN CHEW 81 MG TABLET PO SCH (08:39)
[2019-02-04] MEDS: LANSOPRAZOLE ODT 30 MG TABLET PER TUBE SCH (08:39)
[2019-02-04] MEDS: METOPROLOL TARTRATE 25 MG TABLET PO SCH ×2 (08:39→21:13)
[2019-02-04] MEDS: ASCORBIC ACID 500 MG TABLET PO SCH ×2 (08:39→21:13)
[2019-02-04] MEDS: VANCOMYCIN INJ 1,250 MG in SODIUM CHLORIDE 0.9% 250 ML IV SCH ×2 (08:40→21:18)
[2019-02-04] MEDS: ZINC OXIDE PASTE 113 GM TUBE TOP SCH ×2 (08:40→21:14)
[2019-02-04] MEDS: ONDANSETRON 4 MG/2 ML VIAL IV PRN (08:41)
[2019-02-04] MEDS: ATORVASTATIN 20 MG TABLET PO SCH (21:13)
[2019-02-05] MEDS: INSULIN LISPRO 100 UNIT/ML SUBCUT SCH ×5 (00:35→21:58)
[2019-02-05 05:52] LABS: Calcium 7.5 MG/DL (8.5-10.1); Osmolality,Calculated 279.5 MOS/KG (273-304)
[2019-02-05] MEDS: INSULIN NPH 100 UNIT/ML SUBCUT SCH ×2 (09:03→17:12)
[2019-02-05] MEDS: ASPIRIN CHEW 81 MG TABLET PO SCH (09:03)
[2019-02-05] MEDS: METOPROLOL TARTRATE 25 MG TABLET PO SCH ×2 (09:03→21:57)
[2019-02-05] MEDS: LANSOPRAZOLE ODT 30 MG TABLET PER TUBE SCH (09:03)
[2019-02-05] MEDS: ASCORBIC ACID 500 MG TABLET PO SCH ×2 (09:03→21:57)
[2019-02-05] MEDS: ZINC OXIDE PASTE 113 GM TUBE TOP SCH ×2 (09:58→22:19)
[2019-02-05] MEDS: VANCOMYCIN INJ 1,250 MG in SODIUM CHLORIDE 0.9% 250 ML IV SCH ×2 (10:02→21:58)
[2019-02-05] MEDS: ATORVASTATIN 20 MG TABLET PO SCH (21:57)
[2019-02-06] MEDS: INSULIN LISPRO 100 UNIT/ML SUBCUT SCH ×4 (06:59→22:19)
[2019-02-06] MEDS: INSULIN NPH 100 UNIT/ML SUBCUT SCH ×2 (09:28→16:03)
[2019-02-06] MEDS: METOPROLOL TARTRATE 25 MG TABLET PO SCH ×2 (09:29→22:19)
[2019-02-06] MEDS: ASCORBIC ACID 500 MG TABLET PO SCH ×2 (09:29→22:18)
[2019-02-06] MEDS: ASPIRIN CHEW 81 MG TABLET PO SCH (09:29)
[2019-02-06] MEDS: LANSOPRAZOLE ODT 30 MG TABLET PER TUBE SCH (09:29)
[2019-02-06] MEDS: VANCOMYCIN INJ 1,250 MG in SODIUM CHLORIDE 0.9% 250 ML IV SCH ×2 (09:53→22:19)
[2019-02-06] MEDS: ZINC OXIDE PASTE 113 GM TUBE TOP SCH ×2 (09:53→22:19)
[2019-02-06] MEDS ORDERED: FUROSEMIDE 40 MG/4 ML VIAL IV ONE (10:30)
[2019-02-06] MEDS: ATORVASTATIN 20 MG TABLET PO SCH (22:19)
[2019-02-07] MEDS: INSULIN LISPRO 100 UNIT/ML SUBCUT SCH ×4 (08:04→20:58)
[2019-02-07] MEDS: ASCORBIC ACID 500 MG TABLET PO SCH ×2 (09:52→20:56)
[2019-02-07] MEDS: LANSOPRAZOLE ODT 30 MG TABLET PER TUBE SCH (09:52)
[2019-02-07] MEDS: INSULIN NPH 100 UNIT/ML SUBCUT SCH ×2 (09:52→17:22)
[2019-02-07] MEDS: METOPROLOL TARTRATE 25 MG TABLET PO SCH ×2 (09:52→20:56)
[2019-02-07] MEDS: ZINC OXIDE PASTE 113 GM TUBE TOP SCH ×2 (09:52→20:59)
[2019-02-07] MEDS: VANCOMYCIN INJ 1,250 MG in SODIUM CHLORIDE 0.9% 250 ML IV SCH ×2 (09:53→20:58)
[2019-02-07] MEDS: ASPIRIN CHEW 81 MG TABLET PO SCH (09:53)
[2019-02-07] MEDS: ATORVASTATIN 20 MG TABLET PO SCH (20:56)
[2019-02-08 05:26] LABS: Basophils # 0.1 10*3/uL (0.0-0.2); Basophils % 0.9 % (0.0-0.8); Eosinophils # 0.4 10*3/uL (0.0-0.87); Eosinophils % 3.7 % (0.00-10.9); Hemoglobin 8.7 GM/DL (14.0-18.0); Immature Granulocytes % 0.7 %; Immature Granulocytes Absolute 0.07 #; Lymphocytes % 19.9 % (21.2-54.2); Mean Corpuscular HGB Conc 31.1 GM/DL (32-36); Mean Corpuscular Volume 85.4 FL (87-102); Mean Platelet Volume 10.9 FL (9.6-12.0); Monocytes % 12.6 % (1.7-12.7); Neutrophils % 62.2 % (38.7-73.9); Platelet Count 448 T/CUMM (130-400); Red Blood Count 3.28 MC/CUMM (3.8-5.5)
[2019-02-08 05:36] LABS: Calcium 8.2 MG/DL (8.5-10.1); Osmolality,Calculated 274.7 MOS/KG (273-304)
[2019-02-08 05:45] LABS: Albumin 1.7 G/DL (3.4-5.0); Bilirubin,Total 0.5 MG/DL (0.2-1.0); Calcium 7.9 MG/DL (8.5-10.1); Osmolality,Calculated 274.7 MOS/KG (273-304); Total Protein 6.6 G/DL (6.4-8.3)
[2019-02-08] MEDS: INSULIN NPH 100 UNIT/ML SUBCUT SCH ×2 (10:39→19:21)
[2019-02-08] MEDS: ASCORBIC ACID 500 MG TABLET PO SCH ×2 (10:40→21:09)
[2019-02-08] MEDS: ZINC OXIDE PASTE 113 GM TUBE TOP SCH ×2 (10:41→21:25)
[2019-02-08] MEDS: LANSOPRAZOLE ODT 30 MG TABLET PER TUBE SCH ×2 (10:41→19:21)
[2019-02-08] MEDS: METOPROLOL TARTRATE 25 MG TABLET PO SCH ×2 (10:41→21:09)
[2019-02-08] MEDS: INSULIN LISPRO 100 UNIT/ML SUBCUT SCH ×4 (10:41→21:25)
[2019-02-08] MEDS: ASPIRIN CHEW 81 MG TABLET PO SCH (10:41)
[2019-02-08] MEDS: VANCOMYCIN INJ 1,250 MG in SODIUM CHLORIDE 0.9% 250 ML IV SCH ×2 (11:22→21:10)
[2019-02-08] MEDS: APIXABAN 5 MG TABLET PO SCH (13:48)
[2019-02-08] MEDS: LEVOFLOXACIN INJ 750 MG in PREMIX 1 EACH IV SCH (14:12)
[2019-02-08] MEDS ORDERED: APIXABAN 5 MG TABLET PO SCH (21:00)
[2019-02-08] MEDS: ATORVASTATIN 20 MG TABLET PO SCH (21:09)
[2019-02-09 06:02] LABS: Basophils # 0.1 10*3/uL (0.0-0.2); Basophils % 0.8 % (0.0-0.8); Eosinophils # 0.3 10*3/uL (0.0-0.87); Eosinophils % 3.1 % (0.00-10.9); Hematocrit 25.6 VOL% (42.0-52.0); Immature Granulocytes % 0.7 %; Immature Granulocytes Absolute 0.06 #; Lymphocytes # 1.6 10*3/uL (1.4-4.0); Lymphocytes % 19.3 % (21.2-54.2); Mean Corpuscular HGB Conc 31.3 GM/DL (32-36); Mean Corpuscular Volume 84.8 FL (87-102); Mean Platelet Volume 11.1 FL (9.6-12.0); Monocytes % 12.1 % (1.7-12.7); Platelet Count 419 T/CUMM (130-400); Red Blood Count 3.02 MC/CUMM (3.8-5.5); Red Cell Distribution Width 14.1 % (9.3-17.3); White Blood Count 8.4 T/CUMM (4-12)
[2019-02-09 06:12] LABS: Calcium 8.2 MG/DL (8.5-10.1); Osmolality,Calculated 277.4 MOS/KG (273-304)
[2019-02-09] MEDS: INSULIN NPH 100 UNIT/ML SUBCUT SCH ×2 (08:26→16:28)
[2019-02-09] MEDS: ASCORBIC ACID 500 MG TABLET PO SCH ×2 (08:27→20:43)
[2019-02-09] MEDS: ASPIRIN CHEW 81 MG TABLET PO SCH (08:27)
[2019-02-09] MEDS: METOPROLOL TARTRATE 25 MG TABLET PO SCH ×2 (08:27→20:43)
[2019-02-09] MEDS: LANSOPRAZOLE ODT 30 MG TABLET PER TUBE SCH ×2 (08:28→16:28)
[2019-02-09] MEDS: VANCOMYCIN INJ 1,250 MG in SODIUM CHLORIDE 0.9% 250 ML IV SCH ×2 (08:31→20:46)
[2019-02-09] MEDS: INSULIN LISPRO 100 UNIT/ML SUBCUT SCH ×4 (10:41→21:00)
[2019-02-09] MEDS: APIXABAN 5 MG TABLET PO SCH (11:10)
[2019-02-09] MEDS ORDERED: DIAZEPAM 5 MG TABLET PO ONE (12:59)
[2019-02-09] MEDS: LEVOFLOXACIN INJ 750 MG in PREMIX 1 EACH IV SCH (13:01)
[2019-02-09] MEDS: ZINC OXIDE PASTE 113 GM TUBE TOP SCH ×2 (16:28→20:45)
[2019-02-09] MEDS: ATORVASTATIN 20 MG TABLET PO SCH (20:43)
[2019-02-10] MEDS: INSULIN NPH 100 UNIT/ML SUBCUT SCH ×2 (08:41→16:53)
[2019-02-10] MEDS: INSULIN LISPRO 100 UNIT/ML SUBCUT SCH ×4 (08:41→21:26)
[2019-02-10] MEDS: METOPROLOL TARTRATE 25 MG TABLET PO SCH ×2 (08:42→21:25)
[2019-02-10] MEDS: VANCOMYCIN INJ 1,250 MG in SODIUM CHLORIDE 0.9% 250 ML IV SCH ×2 (08:42→21:25)
[2019-02-10] MEDS: ASCORBIC ACID 500 MG TABLET PO SCH ×2 (08:42→21:25)
[2019-02-10] MEDS: ASPIRIN CHEW 81 MG TABLET PO SCH (08:42)
[2019-02-10] MEDS: LANSOPRAZOLE ODT 30 MG TABLET PER TUBE SCH ×2 (08:42→16:54)
[2019-02-10] MEDS: ZINC OXIDE PASTE 113 GM TUBE TOP SCH ×2 (08:43→21:26)
[2019-02-10] MEDS: LEVOFLOXACIN INJ 750 MG in PREMIX 1 EACH IV SCH (13:52)
[2019-02-10] MEDS: ATORVASTATIN 20 MG TABLET PO SCH (21:25)
[2019-02-11] MEDS: VANCOMYCIN INJ 1,250 MG in SODIUM CHLORIDE 0.9% 250 ML IV SCH ×2 (08:08→21:04)
[2019-02-11] MEDS: LANSOPRAZOLE ODT 30 MG TABLET PER TUBE SCH ×2 (08:09→16:59)
[2019-02-11] MEDS: METOPROLOL TARTRATE 25 MG TABLET PO SCH ×2 (08:09→21:04)
[2019-02-11] MEDS: INSULIN NPH 100 UNIT/ML SUBCUT SCH ×2 (08:09→16:58)
[2019-02-11] MEDS: ASPIRIN CHEW 81 MG TABLET PO SCH (08:09)
[2019-02-11] MEDS: ASCORBIC ACID 500 MG TABLET PO SCH ×2 (08:09→21:04)
[2019-02-11] MEDS: ZINC OXIDE PASTE 113 GM TUBE TOP SCH ×2 (08:10→21:05)
[2019-02-11] MEDS: INSULIN LISPRO 100 UNIT/ML SUBCUT SCH ×4 (08:10→21:05)
[2019-02-11] MEDS: LEVOFLOXACIN INJ 750 MG in PREMIX 1 EACH IV SCH (13:46)
[2019-02-11] MEDS: ATORVASTATIN 20 MG TABLET PO SCH (21:04)
[2019-02-12 05:09] LABS: Basophils # 0.1 10*3/uL (0.0-0.2); Basophils % 0.8 % (0.0-0.8); Eosinophils # 0.2 10*3/uL (0.0-0.87); Eosinophils % 1.8 % (0.00-10.9); Hematocrit 28.7 VOL% (42.0-52.0); Hemoglobin 8.9 GM/DL (14.0-18.0); Immature Granulocytes % 0.7 %; Immature Granulocytes Absolute 0.07 #; Lymphocytes # 1.9 10*3/uL (1.4-4.0); Lymphocytes % 20.1 % (21.2-54.2); Mean Corpuscular Volume 84.9 FL (87-102); Mean Platelet Volume 10.9 FL (9.6-12.0); Monocytes % 12.9 % (1.7-12.7); Neutrophils % 63.7 % (38.7-73.9); Platelet Count 421 T/CUMM (130-400); Red Blood Count 3.38 MC/CUMM (3.8-5.5); Red Cell Distribution Width 14.1 % (9.3-17.3); White Blood Count 9.5 T/CUMM (4-12)
[2019-02-12 05:14] LABS: Calcium 8.8 MG/DL (8.5-10.1); Osmolality,Calculated 273.8 MOS/KG (273-304)
[2019-02-12] MEDS: INSULIN NPH 100 UNIT/ML SUBCUT SCH ×2 (08:30→16:38)
[2019-02-12] MEDS: METOPROLOL TARTRATE 25 MG TABLET PO SCH ×2 (08:31→20:47)
[2019-02-12] MEDS: INSULIN LISPRO 100 UNIT/ML SUBCUT SCH ×4 (08:31→20:46)
[2019-02-12] MEDS: ASPIRIN CHEW 81 MG TABLET PO SCH (08:31)
[2019-02-12] MEDS: ZINC OXIDE PASTE 113 GM TUBE TOP SCH ×2 (08:32→20:45)
[2019-02-12] MEDS: VANCOMYCIN INJ 1,250 MG in SODIUM CHLORIDE 0.9% 250 ML IV SCH ×2 (08:32→20:47)
[2019-02-12] MEDS: LANSOPRAZOLE ODT 30 MG TABLET PER TUBE SCH ×2 (08:32→16:38)
[2019-02-12] MEDS: ASCORBIC ACID 500 MG TABLET PO SCH ×2 (08:32→20:47)
[2019-02-12] MEDS: LEVOFLOXACIN INJ 750 MG in PREMIX 1 EACH IV SCH (13:43)
[2019-02-12] MEDS: ATORVASTATIN 20 MG TABLET PO SCH (20:47)
[2019-02-13] MEDS: INSULIN NPH 100 UNIT/ML SUBCUT SCH ×2 (08:29→16:46)
[2019-02-13] MEDS: INSULIN LISPRO 100 UNIT/ML SUBCUT SCH ×4 (08:29→21:24)
[2019-02-13] MEDS: VANCOMYCIN INJ 1,250 MG in SODIUM CHLORIDE 0.9% 250 ML IV SCH ×2 (08:29→21:25)
[2019-02-13] MEDS: ASCORBIC ACID 500 MG TABLET PO SCH ×2 (08:30→21:24)
[2019-02-13] MEDS: ASPIRIN CHEW 81 MG TABLET PO SCH (08:30)
[2019-02-13] MEDS: METOPROLOL TARTRATE 25 MG TABLET PO SCH ×2 (08:30→21:25)
[2019-02-13] MEDS: LANSOPRAZOLE ODT 30 MG TABLET PER TUBE SCH ×2 (08:30→16:46)
[2019-02-13] MEDS: ZINC OXIDE PASTE 113 GM TUBE TOP SCH ×2 (08:37→21:25)
[2019-02-13] MEDS: LEVOFLOXACIN INJ 750 MG in PREMIX 1 EACH IV SCH (12:59)
[2019-02-13] MEDS: ATORVASTATIN 20 MG TABLET PO SCH (21:24)
[2019-02-14] MEDS: INSULIN LISPRO 100 UNIT/ML SUBCUT SCH ×4 (07:41→21:16)
[2019-02-14] MEDS: VANCOMYCIN INJ 1,250 MG in SODIUM CHLORIDE 0.9% 250 ML IV SCH ×2 (08:16→21:19)
[2019-02-14] MEDS: ASCORBIC ACID 500 MG TABLET PO SCH ×2 (08:17→21:18)
[2019-02-14] MEDS: ASPIRIN CHEW 81 MG TABLET PO SCH (08:17)
[2019-02-14] MEDS: LANSOPRAZOLE ODT 30 MG TABLET PER TUBE SCH ×2 (08:17→16:02)
[2019-02-14] MEDS: INSULIN NPH 100 UNIT/ML SUBCUT SCH ×2 (08:17→16:02)
[2019-02-14] MEDS: METOPROLOL TARTRATE 25 MG TABLET PO SCH ×2 (08:17→21:18)
[2019-02-14] MEDS: ZINC OXIDE PASTE 113 GM TUBE TOP SCH ×2 (08:18→21:19)
[2019-02-14] MEDS: LEVOFLOXACIN INJ 750 MG in PREMIX 1 EACH IV SCH (14:27)
[2019-02-14] MEDS: ATORVASTATIN 20 MG TABLET PO SCH (21:19)
[2019-02-15] MEDS ORDERED: APIXABAN 5 MG TABLET PO SCH ×2 (09:00→21:00)
[2019-02-15] MEDS: INSULIN LISPRO 100 UNIT/ML SUBCUT SCH ×4 (09:10→20:35)
[2019-02-15] MEDS: INSULIN NPH 100 UNIT/ML SUBCUT SCH ×2 (09:10→17:45)
[2019-02-15] MEDS: VANCOMYCIN INJ 1,250 MG in SODIUM CHLORIDE 0.9% 250 ML IV SCH ×2 (09:11→20:31)
[2019-02-15] MEDS: ASPIRIN CHEW 81 MG TABLET PO SCH (09:11)
[2019-02-15] MEDS: LANSOPRAZOLE ODT 30 MG TABLET PER TUBE SCH ×2 (09:11→17:46)
[2019-02-15] MEDS: ASCORBIC ACID 500 MG TABLET PO SCH ×2 (09:11→20:35)
[2019-02-15] MEDS: METOPROLOL TARTRATE 25 MG TABLET PO SCH ×2 (09:11→20:35)
[2019-02-15] MEDS: ZINC OXIDE PASTE 113 GM TUBE TOP SCH ×2 (09:12→20:41)
[2019-02-15] MEDS: ATORVASTATIN 20 MG TABLET PO SCH (20:35)
[2019-02-16 06:13] LABS: Calcium 8.6 MG/DL (8.5-10.1); Osmolality,Calculated 277.7 MOS/KG (273-304)
[2019-02-16] MEDS: INSULIN LISPRO 100 UNIT/ML SUBCUT SCH ×4 (08:58→21:02)
[2019-02-16] MEDS: METOPROLOL TARTRATE 25 MG TABLET PO SCH ×2 (08:59→21:02)
[2019-02-16] MEDS: ASPIRIN CHEW 81 MG TABLET PO SCH (08:59)
[2019-02-16] MEDS: ASCORBIC ACID 500 MG TABLET PO SCH ×2 (08:59→21:02)
[2019-02-16] MEDS: LANSOPRAZOLE ODT 30 MG TABLET PER TUBE SCH ×2 (08:59→16:03)
[2019-02-16] MEDS: ZINC OXIDE PASTE 113 GM TUBE TOP SCH ×2 (08:59→21:02)
[2019-02-16] MEDS: INSULIN NPH 100 UNIT/ML SUBCUT SCH ×2 (09:07→16:18)
[2019-02-16] MEDS: VANCOMYCIN INJ 1,250 MG in SODIUM CHLORIDE 0.9% 250 ML IV SCH ×2 (09:29→21:01)
[2019-02-16] MEDS: ATORVASTATIN 20 MG TABLET PO SCH (21:02)
[2019-02-17] MEDS: ASPIRIN CHEW 81 MG TABLET PO SCH (08:50)
[2019-02-17] MEDS: METOPROLOL TARTRATE 25 MG TABLET PO SCH ×2 (08:50→21:08)
[2019-02-17] MEDS: ASCORBIC ACID 500 MG TABLET PO SCH ×2 (08:50→21:07)
[2019-02-17] MEDS: INSULIN NPH 100 UNIT/ML SUBCUT SCH ×2 (08:51→16:51)
[2019-02-17] MEDS: LANSOPRAZOLE ODT 30 MG TABLET PER TUBE SCH ×2 (08:52→16:59)
[2019-02-17] MEDS: INSULIN LISPRO 100 UNIT/ML SUBCUT SCH ×4 (08:52→20:49)
[2019-02-17] MEDS: VANCOMYCIN INJ 1,250 MG in SODIUM CHLORIDE 0.9% 250 ML IV SCH ×2 (09:00→21:08)
[2019-02-17] MEDS: ZINC OXIDE PASTE 113 GM TUBE TOP SCH ×2 (09:09→21:08)
[2019-02-17] MEDS: ATORVASTATIN 20 MG TABLET PO SCH (21:08)
[2019-02-18] MEDS: INSULIN LISPRO 100 UNIT/ML SUBCUT SCH ×5 (07:58→21:47)
[2019-02-18] MEDS: ASPIRIN CHEW 81 MG TABLET PO SCH (08:00)
[2019-02-18] MEDS: ASCORBIC ACID 500 MG TABLET PO SCH ×2 (08:00→21:46)
[2019-02-18] MEDS: INSULIN NPH 100 UNIT/ML SUBCUT SCH ×2 (08:00→16:41)
[2019-02-18] MEDS: LANSOPRAZOLE ODT 30 MG TABLET PER TUBE SCH ×2 (08:00→16:43)
[2019-02-18] MEDS: METOPROLOL TARTRATE 25 MG TABLET PO SCH ×2 (08:00→21:46)
[2019-02-18] MEDS: VANCOMYCIN INJ 1,250 MG in SODIUM CHLORIDE 0.9% 250 ML IV SCH (08:01)
[2019-02-18] MEDS: ZINC OXIDE PASTE 113 GM TUBE TOP SCH ×2 (08:21→22:01)
[2019-02-18] MEDS: ATORVASTATIN 20 MG TABLET PO SCH (21:46)
[2019-02-18] MEDS: VANCOMYCIN INJ 1,000 MG in SODIUM CHLORIDE 0.9% 250 ML IV SCH (22:00)
[2019-02-19 05:19] LABS: Basophils # 0.1 10*3/uL (0.0-0.2); Basophils % 0.9 % (0.0-0.8); Eosinophils # 0.3 10*3/uL (0.0-0.87); Eosinophils % 3.9 % (0.00-10.9); Hematocrit 27.4 VOL% (42.0-52.0); Hemoglobin 8.3 GM/DL (14.0-18.0); Immature Granulocytes % 0.7 %; Immature Granulocytes Absolute 0.05 #; Lymphocytes # 1.8 10*3/uL (1.4-4.0); Lymphocytes % 24.1 % (21.2-54.2); Mean Corpuscular HGB Conc 30.3 GM/DL (32-36); Mean Corpuscular Volume 83.8 FL (87-102); Mean Platelet Volume 10.9 FL (9.6-12.0); Monocytes % 14.1 % (1.7-12.7); Neutrophils % 56.3 % (38.7-73.9); Platelet Count 361 T/CUMM (130-400); Red Blood Count 3.27 MC/CUMM (3.8-5.5); Red Cell Distribution Width 14.3 % (9.3-17.3); White Blood Count 7.6 T/CUMM (4-12)
[2019-02-19 05:41] LABS: Calcium 8.8 MG/DL (8.5-10.1); Osmolality,Calculated 282.5 MOS/KG (273-304)
[2019-02-19] MEDS: INSULIN LISPRO 100 UNIT/ML SUBCUT SCH ×4 (08:07→20:55)
[2019-02-19] MEDS: INSULIN NPH 100 UNIT/ML SUBCUT SCH ×2 (08:07→16:36)
[2019-02-19] MEDS: ASPIRIN CHEW 81 MG TABLET PO SCH (08:08)
[2019-02-19] MEDS: ASCORBIC ACID 500 MG TABLET PO SCH ×2 (08:08→20:54)
[2019-02-19] MEDS: METOPROLOL TARTRATE 25 MG TABLET PO SCH ×2 (08:08→20:55)
[2019-02-19] MEDS: ZINC OXIDE PASTE 113 GM TUBE TOP SCH ×2 (08:10→20:55)
[2019-02-19] MEDS: LANSOPRAZOLE ODT 30 MG TABLET PER TUBE SCH ×2 (08:10→16:38)
[2019-02-19] MEDS: VANCOMYCIN INJ 1,000 MG in SODIUM CHLORIDE 0.9% 250 ML IV SCH ×2 (09:19→21:01)
[2019-02-19] MEDS: PRIMIDONE 50 MG TABLET PO SCH (20:54)
[2019-02-19] MEDS: ATORVASTATIN 20 MG TABLET PO SCH (20:55)
[2019-02-20 05:21] LABS: Basophils # 0.1 10*3/uL (0.0-0.2); Basophils % 0.8 % (0.0-0.8); Eosinophils # 0.3 10*3/uL (0.0-0.87); Eosinophils % 3.5 % (0.00-10.9); Hematocrit 27.7 VOL% (42.0-52.0); Hemoglobin 8.7 GM/DL (14.0-18.0); Immature Granulocytes % 0.6 %; Immature Granulocytes Absolute 0.05 #; Lymphocytes # 1.9 10*3/uL (1.4-4.0); Lymphocytes % 23.1 % (21.2-54.2); Mean Corpuscular HGB Conc 31.4 GM/DL (32-36); Mean Platelet Volume 11.4 FL (9.6-12.0); Platelet Count 367 T/CUMM (130-400); Red Blood Count 3.42 MC/CUMM (3.8-5.5); Red Cell Distribution Width 14.3 % (9.3-17.3); White Blood Count 8.2 T/CUMM (4-12)
[2019-02-20] MEDS: INSULIN LISPRO 100 UNIT/ML SUBCUT SCH ×4 (09:00→21:00)
[2019-02-20] MEDS: INSULIN NPH 100 UNIT/ML SUBCUT SCH ×2 (09:00→16:31)
[2019-02-20] MEDS: LANSOPRAZOLE ODT 30 MG TABLET PER TUBE SCH ×2 (09:01→16:30)
[2019-02-20] MEDS: PRIMIDONE 50 MG TABLET PO SCH ×2 (09:02→20:59)
[2019-02-20] MEDS: METOPROLOL TARTRATE 25 MG TABLET PO SCH ×2 (09:02→21:00)
[2019-02-20] MEDS: ASCORBIC ACID 500 MG TABLET PO SCH ×2 (09:02→20:59)
[2019-02-20] MEDS: ASPIRIN CHEW 81 MG TABLET PO SCH (09:02)
[2019-02-20] MEDS: ZINC OXIDE PASTE 113 GM TUBE TOP SCH ×2 (09:05→21:00)
[2019-02-20] MEDS: VANCOMYCIN INJ 1,000 MG in SODIUM CHLORIDE 0.9% 250 ML IV SCH ×2 (09:10→21:00)
[2019-02-20] MEDS: ATORVASTATIN 20 MG TABLET PO SCH (20:59)
[2019-02-21] MEDS: PRIMIDONE 50 MG TABLET PO SCH ×3 (09:21→21:18)
[2019-02-21] MEDS: ASCORBIC ACID 500 MG TABLET PO SCH ×2 (09:21→21:18)
[2019-02-21] MEDS: ASPIRIN CHEW 81 MG TABLET PO SCH (09:21)
[2019-02-21] MEDS: METOPROLOL TARTRATE 25 MG TABLET PO SCH ×2 (09:21→21:18)
[2019-02-21] MEDS: INSULIN NPH 100 UNIT/ML SUBCUT SCH ×2 (09:22→17:24)
[2019-02-21] MEDS: INSULIN LISPRO 100 UNIT/ML SUBCUT SCH ×4 (09:22→21:30)
[2019-02-21] MEDS: LANSOPRAZOLE ODT 30 MG TABLET PER TUBE SCH ×2 (09:23→17:25)
[2019-02-21] MEDS: VANCOMYCIN INJ 1,000 MG in SODIUM CHLORIDE 0.9% 250 ML IV SCH ×2 (09:23→21:19)
[2019-02-21] MEDS: ZINC OXIDE PASTE 113 GM TUBE TOP SCH ×2 (09:28→22:10)
[2019-02-21] MEDS: ATORVASTATIN 20 MG TABLET PO SCH (21:18)
[2019-02-22 06:07] LABS: Calcium 8.7 MG/DL (8.5-10.1)
[2019-02-22] MEDS: INSULIN LISPRO 100 UNIT/ML SUBCUT SCH ×4 (09:47→20:16)
[2019-02-22] MEDS: VANCOMYCIN INJ 1,000 MG in SODIUM CHLORIDE 0.9% 250 ML IV SCH ×2 (09:47→21:08)
[2019-02-22] MEDS: ASCORBIC ACID 500 MG TABLET PO SCH ×2 (09:48→20:15)
[2019-02-22] MEDS: INSULIN NPH 100 UNIT/ML SUBCUT SCH ×2 (09:48→17:17)
[2019-02-22] MEDS: ASPIRIN CHEW 81 MG TABLET PO SCH (09:48)
[2019-02-22] MEDS: PRIMIDONE 50 MG TABLET PO SCH ×3 (09:48→20:15)
[2019-02-22] MEDS: METOPROLOL TARTRATE 25 MG TABLET PO SCH ×2 (09:48→20:15)
[2019-02-22] MEDS: ZINC OXIDE PASTE 113 GM TUBE TOP SCH (09:49)
[2019-02-22] MEDS: LANSOPRAZOLE ODT 30 MG TABLET PER TUBE SCH ×2 (09:49→17:17)
[2019-02-22] MEDS: ATORVASTATIN 20 MG TABLET PO SCH (20:16)
[2019-02-23] MEDS: ZINC OXIDE PASTE 113 GM TUBE TOP SCH ×3 (02:06→20:22)
[2019-02-23] MEDS: INSULIN NPH 100 UNIT/ML SUBCUT SCH ×2 (08:51→17:00)
[2019-02-23] MEDS: INSULIN LISPRO 100 UNIT/ML SUBCUT SCH ×4 (08:52→20:23)
[2019-02-23] MEDS: ASCORBIC ACID 500 MG TABLET PO SCH ×2 (08:53→22:05)
[2019-02-23] MEDS: METOPROLOL TARTRATE 25 MG TABLET PO SCH ×2 (08:53→20:22)
[2019-02-23] MEDS: PRIMIDONE 50 MG TABLET PO SCH ×3 (08:53→20:22)
[2019-02-23] MEDS: ASPIRIN CHEW 81 MG TABLET PO SCH (08:54)
[2019-02-23] MEDS: LANSOPRAZOLE ODT 30 MG TABLET PER TUBE SCH ×2 (08:54→17:34)
[2019-02-23] MEDS: VANCOMYCIN INJ 1,000 MG in SODIUM CHLORIDE 0.9% 250 ML IV SCH ×2 (09:18→21:51)
[2019-02-23] MEDS: ATORVASTATIN 20 MG TABLET PO SCH (20:22)
[2019-02-24 06:22] LABS: Calcium 8.5 MG/DL (8.5-10.1); Osmolality,Calculated 273.2 MOS/KG (273-304)
[2019-02-24] MEDS: INSULIN NPH 100 UNIT/ML SUBCUT SCH ×2 (08:14→16:48)
[2019-02-24] MEDS: ASCORBIC ACID 500 MG TABLET PO SCH ×2 (08:15→22:41)
[2019-02-24] MEDS: ASPIRIN CHEW 81 MG TABLET PO SCH (08:15)
[2019-02-24] MEDS: INSULIN LISPRO 100 UNIT/ML SUBCUT SCH ×4 (08:15→22:42)
[2019-02-24] MEDS: METOPROLOL TARTRATE 25 MG TABLET PO SCH ×2 (08:15→22:40)
[2019-02-24] MEDS: PRIMIDONE 50 MG TABLET PO SCH ×3 (08:15→22:40)
[2019-02-24] MEDS: LANSOPRAZOLE ODT 30 MG TABLET PER TUBE SCH ×2 (08:16→16:48)
[2019-02-24] MEDS: VANCOMYCIN INJ 1,000 MG in SODIUM CHLORIDE 0.9% 250 ML IV SCH ×2 (09:35→22:35)
[2019-02-24] MEDS: ZINC OXIDE PASTE 113 GM TUBE TOP SCH ×2 (16:49→22:42)
[2019-02-24] MEDS: ATORVASTATIN 20 MG TABLET PO SCH (22:40)
[2019-02-25] MEDS: PRIMIDONE 50 MG TABLET PO SCH ×3 (08:02→20:21)
[2019-02-25] MEDS: ASCORBIC ACID 500 MG TABLET PO SCH ×2 (08:02→20:31)
[2019-02-25] MEDS: INSULIN LISPRO 100 UNIT/ML SUBCUT SCH ×4 (08:03→20:30)
[2019-02-25] MEDS: METOPROLOL TARTRATE 25 MG TABLET PO SCH ×2 (08:03→20:22)
[2019-02-25] MEDS: ASPIRIN CHEW 81 MG TABLET PO SCH (08:03)
[2019-02-25] MEDS: LANSOPRAZOLE ODT 30 MG TABLET PER TUBE SCH ×2 (08:03→16:58)
[2019-02-25] MEDS: INSULIN NPH 100 UNIT/ML SUBCUT SCH ×2 (08:03→16:59)
[2019-02-25] MEDS: VANCOMYCIN INJ 1,000 MG in SODIUM CHLORIDE 0.9% 250 ML IV SCH ×2 (09:00→21:59)
[2019-02-25] MEDS: ZINC OXIDE PASTE 113 GM TUBE TOP SCH ×2 (11:38→20:23)
[2019-02-25] MEDS: ATORVASTATIN 20 MG TABLET PO SCH (20:22)
[2019-02-26 04:49] LABS: Basophils # 0.1 10*3/uL (0.0-0.2); Basophils % 0.8 % (0.0-0.8); Eosinophils # 0.2 10*3/uL (0.0-0.87); Eosinophils % 3.3 % (0.00-10.9); Hemoglobin 8.1 GM/DL (14.0-18.0); Immature Granulocytes % 0.6 %; Immature Granulocytes Absolute 0.04 #; Lymphocytes # 1.9 10*3/uL (1.4-4.0); Lymphocytes % 26.3 % (21.2-54.2); Mean Corpuscular Volume 82.3 FL (87-102); Mean Platelet Volume 11.6 FL (9.6-12.0); Monocytes % 12.5 % (1.7-12.7); Neutrophils % 56.5 % (38.7-73.9); Platelet Count 314 T/CUMM (130-400); Red Blood Count 3.28 MC/CUMM (3.8-5.5); Red Cell Distribution Width 14.6 % (9.3-17.3); White Blood Count 7.2 T/CUMM (4-12)
[2019-02-26 05:05] LABS: Calcium 8.6 MG/DL (8.5-10.1); Osmolality,Calculated 274.1 MOS/KG (273-304)
[2019-02-26] MEDS: LANSOPRAZOLE ODT 30 MG TABLET PER TUBE SCH ×2 (09:11→16:06)
[2019-02-26] MEDS: ZINC OXIDE PASTE 113 GM TUBE TOP SCH ×2 (09:11→21:03)
[2019-02-26] MEDS: ASCORBIC ACID 500 MG TABLET PO SCH ×2 (09:11→21:01)
[2019-02-26] MEDS: INSULIN LISPRO 100 UNIT/ML SUBCUT SCH ×4 (09:12→21:02)
[2019-02-26] MEDS: ASPIRIN CHEW 81 MG TABLET PO SCH (09:12)
[2019-02-26] MEDS: INSULIN NPH 100 UNIT/ML SUBCUT SCH ×2 (09:12→16:58)
[2019-02-26] MEDS: METOPROLOL TARTRATE 25 MG TABLET PO SCH ×2 (09:59→21:01)
[2019-02-26] MEDS: PRIMIDONE 50 MG TABLET PO SCH ×3 (09:59→21:02)
[2019-02-26] MEDS: VANCOMYCIN INJ 1,000 MG in SODIUM CHLORIDE 0.9% 250 ML IV SCH ×2 (10:58→13:36)
[2019-02-26] MEDS: ATORVASTATIN 20 MG TABLET PO SCH (21:01)
[2019-02-27] MEDS: VANCOMYCIN INJ 1,000 MG in SODIUM CHLORIDE 0.9% 250 ML IV SCH ×2 (03:13→14:14)
[2019-02-27] MEDS ORDERED: INSULIN NPH 100 UNIT/ML SUBCUT SCH (07:30)
[2019-02-27] MEDS: INSULIN LISPRO 100 UNIT/ML SUBCUT SCH ×4 (07:43→21:14)
[2019-02-27] MEDS: ASCORBIC ACID 500 MG TABLET PO SCH ×2 (08:14→21:14)
[2019-02-27] MEDS: METOPROLOL TARTRATE 25 MG TABLET PO SCH ×2 (08:14→21:14)
[2019-02-27] MEDS: ASPIRIN CHEW 81 MG TABLET PO SCH (08:14)
[2019-02-27] MEDS: LANSOPRAZOLE ODT 30 MG TABLET PER TUBE SCH ×2 (08:15→17:20)
[2019-02-27] MEDS: PRIMIDONE 50 MG TABLET PO SCH ×3 (08:15→21:14)
[2019-02-27] MEDS: ZINC OXIDE PASTE 113 GM TUBE TOP SCH ×2 (08:26→21:22)
[2019-02-27] MEDS: INSULIN NPH 100 UNIT/ML SUBCUT SCH (17:20)
[2019-02-27] MEDS: ATORVASTATIN 20 MG TABLET PO SCH (21:14)
[2019-02-28] MEDS: VANCOMYCIN INJ 1,000 MG in SODIUM CHLORIDE 0.9% 250 ML IV SCH ×2 (01:47→15:06)
[2019-02-28] MEDS: INSULIN LISPRO 100 UNIT/ML SUBCUT SCH ×4 (08:17→21:06)
[2019-02-28] MEDS: PRIMIDONE 50 MG TABLET PO SCH ×3 (09:08→21:06)
[2019-02-28] MEDS: ASCORBIC ACID 500 MG TABLET PO SCH ×2 (09:08→21:05)
[2019-02-28] MEDS: METOPROLOL TARTRATE 25 MG TABLET PO SCH ×2 (09:08→21:05)
[2019-02-28] MEDS: ZINC OXIDE PASTE 113 GM TUBE TOP SCH ×2 (09:09→23:37)
[2019-02-28] MEDS: ASPIRIN CHEW 81 MG TABLET PO SCH (09:09)
[2019-02-28] MEDS: INSULIN NPH 100 UNIT/ML SUBCUT SCH ×2 (09:09→16:52)
[2019-02-28] MEDS: LANSOPRAZOLE ODT 30 MG TABLET PER TUBE SCH ×2 (09:09→16:52)
[2019-02-28] MEDS: ATORVASTATIN 20 MG TABLET PO SCH (21:05)
[2019-03-01] MEDS: VANCOMYCIN INJ 1,000 MG in SODIUM CHLORIDE 0.9% 250 ML IV SCH ×2 (01:54→13:05)
[2019-03-01] MEDS: INSULIN LISPRO 100 UNIT/ML SUBCUT SCH ×2 (09:04→12:48)
[2019-03-01] MEDS: INSULIN NPH 100 UNIT/ML SUBCUT SCH (09:05)
[2019-03-01] MEDS: METOPROLOL TARTRATE 25 MG TABLET PO SCH (09:05)
[2019-03-01] MEDS: PRIMIDONE 50 MG TABLET PO SCH ×2 (09:06→16:11)
[2019-03-01] MEDS: ASCORBIC ACID 500 MG TABLET PO SCH (09:06)
[2019-03-01] MEDS: ASPIRIN CHEW 81 MG TABLET PO SCH (09:06)
[2019-03-01] MEDS: ZINC OXIDE PASTE 113 GM TUBE TOP SCH (09:08)
[2019-03-01] MEDS: LANSOPRAZOLE ODT 30 MG TABLET PER TUBE SCH (09:08)
[2019-03-01 14:03] VITALS: BP 114/68
== END 2019-03-01 16:11 | disposition home or self-care (01) | DRG 628 ==
LOC: EDBD → EDUNIT# → N.ED 14:12 → SUATTDRO 16:28 → N.EDINP 16:28 → N.CC 21:05 → N.5E 01-19 14:48
PROVIDERS: ADMIT Internal Medicine; ATTEND Internal Medicine